=== PATIENT | female | born 1970 | race Hispanic/Latino ===

== ENCOUNTER 2021-07-07 11:44 | Emergency (ER) | payer OTHER ==
[~2021-07-07] VITALS: Ht 154.9 cm; Wt 73.9 kg
[~2021-07-07 11:44] MED LIST: AMOX500T2 PO; ESOM40CA PO; PREN1TAB80 PO
[2021-07-07 12:25] LABS: BASOPHILS % (AUTO) 0.2 % (0.0-5.0); EOSINOPHILS % (AUTO) 0.9 % (0.0-8.0); HEMATOCRIT 37.3 % (36-48); LYMPHOCYTES % (AUTO) 3.2 % (21.0-51.0); MEAN CORPUSCULAR HGB CONC 30.6 g/dL (32.0-36.0); MEAN CORPUSCULAR VOLUME 75.2 fL (79-99); MONOCYTES % (AUTO) 3.2 % (3.0-13.0); NEUTROPHILS % (AUTO) 92.2 % (40.0-77.0); PLATELET COUNT (AUTO) 321 K/uL (130-400); RED BLOOD CELL COUNT(AUTO) 4.96 MIL/uL (4.00-5.50); RED CELL DISTRIBUTION WIDTH 16.9 % (11.0-15.5); WHITE BLOOD COUNT (AUTO) 10.9 K/uL (4.8-10.8)
[2021-07-07 12:29] LABS: APPEARANCE,URINE TURBID (CLEAR); BILIRUBIN,URINE NEGATIVE (NEGATIVE); COLOR,URINE YELLOW (YELLOW); GLUCOSE, URINE (UA) NEGATIVE (NEGATIVE); KETONES,URINE NEGATIVE (NEGATIVE); LEUKOCYTE ESTERASE ,URINE NEGATIVE (NEGATIVE); NITRATE,URINE NEGATIVE (NEGATIVE); OCCULT BLOOD,URINE NEGATIVE (NEGATIVE); PH,URINE 5.5 (5.0-8.0); PROTEIN,URINE 30 mg/dL (NEGATIVE); UROBILINOGEN,URINE 0.2 mg/dL (0.2-1.0)
[2021-07-07] MEDS ORDERED: 0.9%NACL 1000ML 1,000 ML IV ONE (12:30)
[2021-07-07] MEDS ORDERED: ONDANSETRON 4MG INJ IVP ONE (12:30)
[2021-07-07] MEDS ORDERED: FAMOTIDINE 20MG TAB PO ONE (12:30)
[2021-07-07] MEDS ORDERED: DICYCLOMINE HCL 10 MG/5 ML ML PO ONE (12:30)
[2021-07-07] MEDS ORDERED: LIDOCAINE HCL 2% VISCOUS 15 ML UDCUP PO ONE (12:30)
[2021-07-07] MEDS ORDERED: MAG/ALUM/SIMETH 30 ML UDCUP PO ONE (12:30)
[2021-07-07 12:36] LABS: HCG,QUAL RESULT NEGATIVE (NEGATIVE)
[2021-07-07 12:39] LABS: AMORPHOUS SEDIMENT,UR Many /LPF (None Seen); BACTERIA,URINE Few /HPF (None Seen); RBC,URINE 0-1 /HPF (0-1); SQUAMOUS EPITHELIAL CELL,UR Rare /HPF (0-2); WBC,URINE 0-1 /HPF (0-1)
[2021-07-07 12:50] LABS: BILIRUBIN,TOTAL 0.4 mg/dL (0.2-1.0); CREATININE 0.8 mg/dL (0.5-1.5); TOTAL PROTEIN, SERUM 8.5 g/dL (6.0-8.3)
[2021-07-07] MEDS ORDERED: DICY20TA2 PO (14:09)
[2021-07-07] MEDS ORDERED: ONDA4TAB10 PO (14:09)
[2021-07-07 14:11] VITALS: BP 132/79
== END 2021-07-07 14:25 | disposition home or self-care (01) ==
LOC: EDH 11:44
DX: A08.4 Viral intestinal infection, unspecified (principal); E86.0 Dehydration; Z20.822 Contact with and (suspected) exposure to COVID-19; K21.9 Gastro-esophageal reflux disease without esophagitis; Z79.899 Other long term (current) drug therapy; Z90.89 Acquired absence of other organs; Z90.49 Acquired absence of other specified parts of digestive tract
CPT/HCPCS: 36415; 71045; 80053; 81001; 81025; 83690; 84484; 85025; 87635; 87804 ×2; 96374; 99284; C9803; J2405; J7030

== ENCOUNTER 2022-07-06 21:32 | Emergency (ER) | payer BC ==
[~2022-07-06] VITALS: Ht 154.9 cm; Wt 68.0 kg
[~2022-07-06 21:32] MED LIST changes: +DICY20TA2 PO; +ONDA4TAB10 PO
[2022-07-07] MEDS ORDERED: ONDANSETRON 4MG INJ ONE (00:05)
[2022-07-07 00:29] LABS: APPEARANCE,URINE CLOUDY (CLEAR); BILIRUBIN,URINE NEGATIVE (NEGATIVE); COLOR,URINE YELLOW (YELLOW); GLUCOSE, URINE (UA) NEGATIVE (NEGATIVE); KETONES,URINE NEGATIVE (NEGATIVE); LEUKOCYTE ESTERASE ,URINE 25 Leu/uL (NEGATIVE); NITRATE,URINE NEGATIVE (NEGATIVE); OCCULT BLOOD,URINE NEGATIVE (NEGATIVE); PH,URINE 5.5 (5.0-8.0); PROTEIN,URINE 30 mg/dL (NEGATIVE); UROBILINOGEN,URINE 0.2 mg/dL (0.2-1.0)
[2022-07-07] MEDS ORDERED: ONDANSETRON 4MG INJ IVP ONE (00:30)
[2022-07-07 00:32] LABS: MUCUS,URINE RARE LPF (None Seen); SQUAMOUS EPITHELIAL CELL,UR MANY /HPF (0-2)
[2022-07-07 00:34] LABS: BASOPHILS % (AUTO) 0.3 % (0.0-5.0); EOSINOPHILS % (AUTO) 3.6 % (0.0-8.0); HEMATOCRIT 40.3 % (36-48); LYMPHOCYTES % (AUTO) 26.4 % (21.0-51.0); MEAN CORPUSCULAR HEMOGLOBIN 27.3 pg (27.0-33.0); MEAN CORPUSCULAR VOLUME 82.8 fL (79-99); MONOCYTES % (AUTO) 10.5 % (3.0-13.0); NEUTROPHILS % (AUTO) 58.9 % (40.0-77.0); PLATELET COUNT (AUTO) 282 K/uL (130-400); RED BLOOD CELL COUNT(AUTO) 4.87 MIL/uL (4.00-5.50); RED CELL DISTRIBUTION WIDTH 19.7 % (11.0-15.5); WHITE BLOOD COUNT (AUTO) 6.2 K/uL (4.8-10.8)
[2022-07-07 01:20] LABS: CREATININE 0.8 mg/dL (0.5-1.5); POTASSIUM 3.7 mmol/L (3.5-5.1)
[2022-07-07 01:22] LABS: TOTAL PROTEIN, SERUM 8.4 g/dL (6.0-8.3)
[2022-07-07] MEDS ORDERED: CEFTRIAXONE 1G VIAL IVPB ONE (03:00)
[2022-07-07] MEDS ORDERED: 0.9%NACL 1000ML 1,000 ML IV ONE (04:00)
[2022-07-07] MEDS ORDERED: IOHEXOL 350 MG/ML 100ML INFUS..BTL IV ONE (04:58)
[2022-07-07] MEDS ORDERED: ESOM20CA31 PO (06:55)
[2022-07-07] MEDS ORDERED: ONDA4TAB10 PO (06:55)
[2022-07-07 07:11] VITALS: BP 110/61
== END 2022-07-07 07:21 | disposition home or self-care (01) ==
LOC: EDH 21:32
DX: A08.4 Viral intestinal infection, unspecified (principal); E86.0 Dehydration; N83.201 Unspecified ovarian cyst, right side; K21.9 Gastro-esophageal reflux disease without esophagitis; E66.9 Obesity, unspecified; Z90.49 Acquired absence of other specified parts of digestive tract; Z68.28 Body mass index [BMI] 28.0-28.9, adult; Z20.822 Contact with and (suspected) exposure to COVID-19; Z90.710 Acquired absence of both cervix and uterus
CPT/HCPCS: 99284; 87635; 80053; 83690; 85025; 87088; 87804 ×2; 83605; 81001; 36415; 74177; 96365; 96361; 96375; C9803; J7030; J0696; J2405; Q9967